=== PATIENT | male | born 2000 | race Caucasian/White ===

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

== ENCOUNTER 2023-04-25 01:52 | Emergency (ER) | payer BC ==
[~2023-04-25] VITALS: Ht 180.3 cm; Wt 77.3 kg
[2023-04-25 01:54] VITALS: BP 140/93; PULSE 145; RESP 20; O2SAT 98
[2023-04-25] MEDS: normal saline 1000ml 1,000 ML IV STA (03:14)
[2023-04-25 03:18] LABS: BASOPHILS % (AUTO) 0.3 % (0-1); EOSINOPHILS % (AUTO) 0.2 % (0-6); HEMATOCRIT 46.8 % (42.0-52.0); HEMOGLOBIN 15.9 g/dl (14.0-17.9); LYMPHOCYTES # (AUTO) 3.1 X10'3 (1.1-4.8); MEAN CORPUSCULAR HEMOGLOBIN 31.5 PG (27.0-31.0); MEAN CORPUSCULAR HGB CONC 33.9 g/dL (33.0-36.5); MEAN PLATELET VOLUME 7.6 FL (7.4-10.4); MONOCYTES # (AUTO) 0.8 X10'3 (0-0.9); MONOCYTES % (AUTO) 5.7 % (2-12); NEUTROPHILS # (AUTO) 9.7 X10'3 (1.8-7.7); NEUTROPHILS % (AUTO) 70.8 % (42-75); PLATELET COUNT 351 X10'3 (140-440); RED BLOOD COUNT 5.04 X10'6 (4.70-6.10); WHITE BLOOD COUNT 13.7 X10'3 (4.5-11.0)
[2023-04-25 03:26] LABS: ALBUMIN 4.6 G/DL (3.4-5.0); ANION GAP 10 (8-16); BLOOD UREA NITROGEN 7 MG/DL (7-18); BUN/CREATININE RATIO 6.9 (10.0-20.0); CALCIUM 8.8 MG/DL (8.5-10.1); CHLORIDE 104 MMOL/L (99-107); CREATININE 1.01 MG/DL (0.60-1.10); ETHANOL 132 MG/DL (<10); GLUCOSE 117 MG/DL (70-104); POTASSIUM 4.1 MMOL/L (3.5-5.1); SODIUM 143 MMOL/L (135-145); TOTAL CARBON DIOXIDE 28.8 MMOL/L (24-32); eCRCL 123 ML/MIN; eGFR > 90 ML/MIN
[2023-04-25 04:13] LABS: URINE AMPHETAMINE SCREEN POSITIVE (Neg); URINE BARBITUATE SCREEN NEGATIVE (Neg); URINE BENZODIAZEPINES SCREEN NEGATIVE (Neg); URINE CANNABINOID SCREEN POSITIVE (Neg); URINE COCAINE SCREEN NEGATIVE (Neg); URINE METHADONE SCREEN NEGATIVE (Neg); URINE OPIATE SCREEN NEGATIVE (Neg); URINE PHENCYCLIDINE SCREEN NEGATIVE (Neg)
[2023-04-25 04:38] VITALS: TEMP 98
== END 2023-04-25 04:39 | disposition left against medical advice (07) ==
LOC: ER 01:53
DX: F10.129 Alcohol abuse with intoxication, unspecified (principal); F15.129 Other stimulant abuse with intoxication, unspecified; F12.10 Cannabis abuse, uncomplicated
CPT/HCPCS: 36415; 80048; 80305; 80320; 85025; 93005; 96360; 99284; J7030

== ENCOUNTER 2024-12-06 02:53 | Emergency (ER) | payer BC ==
[~2024-12-06] VITALS: Ht 180.3 cm; Wt 65.0 kg
[2024-12-06 03:03] VITALS: TEMP 97
--- NOTE | 2024-12-06 03:17 | ELECTROCARDIOGRAPH REPORT ---
[facility] Test Date: 2024-12-06 Test Time: 03:14:24 Pat Name: HOMA MAGALLON Department: EMERGENCY ROOM Room: Gender: M Sales Recruitment Specialist: SB : 2000 Requested By: EYAL DRISCOLL Order Number: [id number] Reading MD: Dr. Tee Collins Measurements Intervals [place] Rate: 123 P: 72 SD: 159 QRS: 131 QRSD: 92 T: 58 QT: 316 QTc: 452 Interpretive Statements Sinus tachycardia LAE, consider biatrial enlargement Right ventricular hypertrophy Electronically Signed On 12-10-2024 20:44:[address] Tee Collins Please click the below link to view image of tracing.
--- NOTE | 2024-12-06 03:35 | Physician Documentation ---
History of Present Illness ~ Chief Complaint: Chest Pain Stated Complaint: CHEST PAINS Time Seen by MD: 03:24 Primary Medical Doctor: heidi Mode of Arrival: POV HPI Patient presents to the emergency room with left-sided chest pain that has been going on for the past two days. He reports history of high blood pressure but that has not take medications for it. Denies history of cholesterol or diabetes. He does not smoke cigarettes but does smoke THC. Patient has normal activities for recreation do include cardiovascular activities without limitations. He states pain is exacerbated with breathing and movement. Medication Reconciliation Allergies: Coded Allergies: No Known Allergies (Unverified , 06/02/09) Past Medical History Past Medical History: Anxiety, Depression Alcohol Use: Occasionally Review of Systems ROS All review of systems negative except as per HPI Physical Exam Vital Signs: Temperature: 97.0, Heart Rate: 135, Respiratory Rate: 18, BP: 155/98, Pulse Oximetry: 100, Weight: 65.000 Oxygen Flow Rate: 0 Physical Exam General: Patient is awake, alert, oriented x4 in no acute distress Head: Normocephalic and atraumatic. Eyes: Conjunctival normal. EOMI. PERRL. ENT: Mucous membranes moist. Neck: Supple, trachea is midline. Chest: Clear to auscultation bilaterally without rales, rhonchi, or wheezes. There is no accessory muscle use or retractions. Cardiac: Heart rate 102 and regular without murmurs, gallops, or rubs. Abd: Soft, nondistended, nontender, with normoactive bowel sounds. No guarding, rebound, or rigidity. Extremities: Normal strength. Normal range of motion. No deformities or edema. No calf tenderness to palpation Progress Results/Orders Results/Orders Completed Orders - EYAL RICE MD Stat Ekg (12/06/24 ) Vital Signs 12/06/24 12/06/24 03:03 03:19 Temp 97.0 Pulse 135 Resp 18 18 B/P (MAP) 155/98 Pulse Ox 100 O2 Flow Rate 0 EKG/XRAY/CT/US/VASC/MRI EKG : Additional Comment EKG interpreted by myself shows time of 0314, rate 123, sinus tachycardia, borderline right axis deviation, no ST changes Medical Decision Making Additional information obtaine: old records Findings Upon re-evaluation patient's heart rate is 85. Patient presented to the emergency room with left-sided chest pain as per HPI. Differentials include but are not limited to ACS, musculoskeletal pain, pneumothorax, pulmonary embolism. EKGs reassuring. Patient is saturating 100% on room air with a heart rate in the 80s. He did present with significant tachycardia which resolved in time. Possible stimulant use versus anxiety. He had not feel that has tachycardia represents pulmonary embolism. Heart score of one in his considered low risk. EKG reassuring Heart Score: 1 Differential Dx:Considerations: Include: angina, aortic dissection, chest wall pain, cholelithiasis, CHF, costochondritis, esophageal reflux/spasm, gastritis, herpes zoster, myocardial infarction, pericarditis, pleuritis, pancreatitis, pneumonia, pneumothorax, pulmonary embolus, other Departure Disposition: 01 HOME / SELF CARE / HOMELESS Impression: Primary Impression: Chest pain Condition: Stable Discharge Instructions: Nonspecific Chest Pain, Adult Referrals: NO PRIMARY CARE PROVIDER (PCP) Signature Scribe Signature: No scribe Attestation: The note accurately reflects work and decisions made by me.Eyal Rice MD 12/06/24 04:18 EYAL RICE MD Dec 06, 2024 03:35
[2024-12-06 04:23] VITALS: BP 118/74; PULSE 98; RESP 16; O2SAT 98
== END 2024-12-06 04:24 | disposition home or self-care (01) ==
LOC: ER 02:54
DX: R07.9 Chest pain, unspecified (principal); F41.9 Anxiety disorder, unspecified; F32.A Depression, unspecified; Z72.89 Other problems related to lifestyle
CPT/HCPCS: 93005; 99283